=== PATIENT | male | born 1950 | race Caucasian/White ===

== ENCOUNTER → 2022-06-21 | Day surgery (SDC) | payer OTHER ==
[~2022-06-21] VITALS: Ht 175.3 cm; Wt 85.3 kg
[~2022-06-21] MED LIST: ACETAMINOPHEN500 M1 PO; ASPIRIN EC81 M1 PO; ATORVASTATIN CA40 MG PO; BRILINTA90 MG PO; COLACE100 MG PO; LOPRESSOR25 MG PO; NITROGLYCERIN0.4 MG SL; OXY-IR 5MG5 MG PO; PANTOPRAZOLE SO20 MG PO
[2022-06-21 10:06] LABS: BILIRUBIN - TOTAL 1.2 mg/dL (0.2-1.0); BUN/CREAT RATIO (CALC) 20.2 RATIO; CREATININE 0.99 mg/dL (0.67-1.17); GLOBULIN (CALCULATION) 3.7 g/dL; TOTAL PROTEIN 7.7 g/dL (6.4-8.2)
== END | disposition home or self-care (01) ==
LOC: FAS 07:47
PROVIDERS: Student in an Organized Health Care Education/Training Program
DX: K80.10 Calculus of gallbladder with chronic cholecystitis without obstruction (principal); K76.89 Other specified diseases of liver; I25.10 Atherosclerotic heart disease of native coronary artery without angina pectoris; I10 Essential (primary) hypertension; Z87.891 Personal history of nicotine dependence; Z87.442 Personal history of urinary calculi
CPT/HCPCS: 36415; 80053; 82150; 83690; 93005; J1100; J1335; J1644; J2250; J2405; J2704; J3010; J7120